=== PATIENT | female | born 1970 | race American Indian/Alaskan Native ===

== ENCOUNTER 2017-12-21 06:34 | Emergency (ER) | payer SELFPAY ==
[2017-12-21 07:44] LABS: Basophils % (Auto) 0.7 % (0.0-1.8); Eosinophils # (Auto) 0.4 K/mm3 (0.0-0.4); Eosinophils % (Auto) 7.3 % (0.0-4.3); Hemoglobin 11.1 gm/dl (10.1-14.3); Lymphocytes % (Auto) 33.9 % (13.4-35.0); Mean Corpuscular HGB Conc 31 % (30-34); Mean Corpuscular Volume 74 fl (79-97); Monocytes # (Auto) 0.4 K/mm3 (0.0-0.8); Monocytes % (Auto) 6.2 % (0.0-7.3); Platelet Count 199 K/mm3 (140-440); Red Cell Distribution Width 16.4 % (13.2-15.2)
[2017-12-21 07:51] LABS: Mean Corpuscular Hemoglobin 23 pg (28-32)
[2017-12-21] MEDS ORDERED: NORCO 5/325 PO ONE (07:54)
[2017-12-21] MEDS ORDERED: TORADOL IM ONE (07:54)
--- NOTE | 2017-12-21 08:00 | Emergency Department Report ---
HPI - General Chief Complaint: Back Pain/Injury Time Seen by Provider: 12/21/17 07:44 - HPI HPI: Room 26 The patient is a 47-year-old female presenting with a chief complaint left flank pain and left thigh pain. The patient states 2 days ago she slipped with a total 400 back when she awakened she had pain in the left back and left thigh. Patient also states she's had dysuria for one week. Patient denies hematuria, nausea/vomiting or fever. Location: [See above] Duration: 2 days Quality: Pain Severity: [See above] Modifying factors: [see above] Context: [see above] Mode of transportation: [not driving] ED Past Medical Hx - Past Medical History Previous Medical History?: Yes Hx Hypertension: Yes Hx Diabetes: Yes - Surgical History Past Surgical History?: Yes Additional Surgical History: Bilateral tubal ligation - Family History Family history: no significant - Social History Smoking Status: Never Smoker Substance Use Type: None - Medications Home Medications: Home Medications Medication Instructions Recorded Confirmed Last Taken Type Cyclobenzaprine [Flexeril] 10 mg PO TID PRN #14 tablet 12/21/17 Unknown Rx HYDROcodone/APAP 5-325 [[place] 1 - 2 each PO Q6HR PRN #14 tablet 12/21/17 Unknown Rx 5/325] Ibuprofen [Motrin 800 MG tab] 800 mg PO Q8HR PRN #20 tablet 12/21/17 Unknown Rx Levofloxacin [Levaquin TAB] 500 mg PO QDAY #7 tablet 12/21/17 Unknown Rx ED Review of Systems ROS: Stated complaint: BACK PAIN Other details as noted in HPI Constitutional: denies: fever Eyes: denies: eye pain ENT: denies: throat pain Cardiovascular: denies: chest pain Gastrointestinal: denies: abdominal pain, nausea, vomiting Genitourinary: dysuria. denies: hematuria Musculoskeletal: back pain Neurological: denies: headache Physical Exam - Physical Exam Vital Signs: Vital Signs 12/21/17 06:34 Temperature 98.4 F Pulse Rate 88 Respiratory 18 Rate Blood Pressure 129/82 O2 Sat by Pulse 99 Oximetry Physical Exam: GENERAL: The patient is well-developed well-nourished female lying on stretcher not appearing to be in acute distress. [] HEENT: Normocephalic. Atraumatic. Extraocular motions are intact. Patient has moist mucous membranes. NECK: Supple. No meningitic signs are noted. There is no adenopathy noted. CHEST/LUNGS: Clear to auscultation. There is no respiratory distress noted. HEART/CARDIOVASCULAR: Regular. There is no tachycardia. There is no gallop rub or murmur. ABDOMEN: Abdomen is soft, nontender. Patient has normal bowel sounds. There is no abdominal distention. SKIN: There is no rash. There is no edema. There is no diaphoresis. NEURO: The patient is awake, alert, and oriented. The patient is cooperative. The patient has normal speech MUSCULOSKELETAL: There is left CVA tenderness. There is no evidence of acute injury. ED Course Vital Signs 12/21/17 06:34 Temperature 98.4 F Pulse Rate 88 Respiratory 18 Rate Blood Pressure 129/82 O2 Sat by Pulse 99 Oximetry ED Medical Decision Making - Lab Data Result diagrams: 12/21/17 07:03 12/21/17 07:03 Laboratory Tests 12/21/17 12/21/17 12/21/17 06:47 07:03 07:03 WBC 5.8 RBC 4.90 Hgb 11.1 Hct 36.0 MCV 74 L MCH 23 L MCHC 31 RDW 16.4 H Plt Count 199 Lymph % (Auto) 33.9 Esmeralda % (Auto) 6.2 Eos % (Auto) 7.3 H Baso % (Auto) 0.7 Lymph # 2.0 Esmeralda # 0.4 Eos # 0.4 Baso # 0.0 Seg Neutrophils % 51.9 Seg Neutrophils # 3.0 Sodium 134 L Potassium 3.9 Chloride 97.1 L Carbon Dioxide 21 L Anion Gap 20 BUN 11 Creatinine 0.4 L Estimated GFR > 60 BUN/Creatinine Ratio 28 Glucose 344 H POC Glucose 341 H Calcium 9.0 Total Bilirubin 0.90 AST 25 ALT 36 Alkaline Phosphatase 47 Total Protein 7.4 Albumin 3.9 Albumin/Globulin Ratio 1.1 Urine Color Urine Turbidity Urine pH Ur Specific [place] Urine Protein Urine Glucose (UA) Urine Ketones Urine Blood Urine Nitrite Urine Bilirubin Urine Urobilinogen Ur Leukocyte Esterase Urine WBC (Auto) Urine RBC (Auto) U Epithel Cells (Auto) Urine Bacteria (Auto) Urine Mucus Urine Yeast (Budding) Urine HCG, Qual 12/21/17 12/21/17 08:00 Unknown WBC RBC Hgb Hct MCV MCH MCHC RDW Plt Count Lymph % (Auto) Esmeralda % (Auto) Eos % (Auto) Baso % (Auto) Lymph # Esmeralda # Eos # Baso # Seg Neutrophils % Seg Neutrophils # Sodium Potassium Chloride Carbon Dioxide Anion Gap BUN Creatinine Estimated GFR BUN/Creatinine Ratio Glucose POC Glucose Calcium Total Bilirubin AST ALT Alkaline Phosphatase Total Protein Albumin Albumin/Globulin Ratio Urine Color Yellow Urine Turbidity Clear Urine pH 5.0 Ur Specific [place] 1.040 H Urine Protein <15 mg/dl Urine Glucose (UA) >=500 Urine Ketones Tr Urine Blood Sm Urine Nitrite Neg Urine Bilirubin Neg Urine Urobilinogen < 2.0 Ur Leukocyte Esterase Lg Urine WBC (Auto) 31.0 H Urine RBC (Auto) 10.0 U Epithel Cells (Auto) 7.0 Urine Bacteria (Auto) 2+ Urine Mucus Few Urine Yeast (Budding) 1+ Urine HCG, Qual Negative - Radiology Data Radiology results: report reviewed (CT abdomen and pelvis-discussed with radiologist), image reviewed CT abdomen and pelvis (discussed with radiologist)-no stones or hydronephrosis seen. There is a fatty liver. There is a left renal cyst. There is a hiatal hernia. - Differential Diagnosis sciatica, lumbar radiculopathy, renal colic, pyelonephritis, UTI Critical care attestation.: If time is entered above; I have spent that time in minutes in the direct care of this critically ill patient, excluding procedure time. ED Disposition Clinical Impression: UTI (urinary tract infection), Left flank pain Disposition: DC- TO HOME OR SELFCARE Is pt being admited?: No Does the pt Need Aspirin: No Condition: Stable Instructions: Lumbar Radiculopathy (ED), Acute Pyelonephritis (ED), Flank Pain (ED), Urinary Tract Infection in Women (ED) Additional Instructions: Return to the emergency department immediately should you develop worsening symptoms, fever, inability to tolerate food or liquid or any other concerns. Prescriptions: Cyclobenzaprine [Flexeril] 10 mg PO TID PRN #14 tablet PRN Reason: Muscle Spasm HYDROcodone/APAP 5-325 [[place] 5/325] 1 - 2 each PO Q6HR PRN #14 tablet PRN Reason: Pain Ibuprofen [Motrin 800 MG tab] 800 mg PO Q8HR PRN #20 tablet PRN Reason: Pain Levofloxacin [Levaquin TAB] 500 mg PO QDAY #7 tablet Referrals: PRIMARY CARE, [Primary Care Provider] - 3-5 Days TRUONG CHOU MD [Staff Physician] - 3-5 Days (Dr. Chou is an orthopedic surgeon. Please follow up with him for further evaluation) Time of Disposition: 10:06
[2017-12-21 08:03] LABS: Alanine Aminotransferase 36 units/L (7-56); Albumin 3.9 g/dL (3.9-5); BUN/Creatinine Ratio 28; Blood Urea Nitrogen 11 mg/dL (7-17); Hemolysis Index 7
[2017-12-21 08:07] LABS: Bacteria,Urine 2+ /HPF (Negative); Bilirubin,Urine NEG (Negative); Blood,Urine SM (Negative); Color,Urine Yellow (Yellow); Mucus,Urine FEW /HPF; Protein,Urine <15 mg/dL mg/dL (Negative); Urobilinogen,Urine < 2.0 mg/dL (<2.0)
[2017-12-21 09:12] LABS: HCG Qualitative,Urine Negative (Negative)
[2017-12-21 10:50] VITALS: BP 124/88
--- NOTE | 2017-12-21 11:20 | Cat Scan Report ---
CT ABDOMEN AND PELVIS WITHOUT CONTRAST INDICATION: Left flank pain. COMPARISON: None similar at this institution. FINDINGS: Noncontrast abdomen and pelvis CT performed. LUNG BASES: Top normal heart size. Nonspecific distal esophageal wall prominence/thickening, not excluded for gastroesophageal reflux and/or hiatal hernia, amongst others. ABDOMEN: Please note that sensitivity to detect small visceral lesions is limited due to the absence of intravenous or oral contrast. Diffuse fatty hepatic infiltration with mild pericholecystic sparing noted. Right hepatic lobe 20.5 cm in midclavicular length. Otherwise grossly unremarkable unenhanced liver, spleen, gallbladder, pancreas, adrenals, aorta, IVC and kidneys. A 1.3 cm left interpolar renal cyst as on axial image 66, series 2. Another indeterminate 0.5 cm slightly exophytic density may project off the left lower renal cortex as on axial image 90, series 2. Few small, subcentimeter mesenteric and retroperitoneal lymph nodes. No ascites. Nonopacified GI tract evaluation limited, though grossly nonobstructive. Normal appendix. PELVIS: Uterus, adnexa/ovaries and rectosigmoid within normal limits. Few pelvic phleboliths. Grossly preserved urinary bladder contours with intrinsic fluid attenuation of 31 HU. No pelvic free fluid. Few small bilateral inguinal lymph nodes. Multilevel spinal degenerative changes, including lower thoracic predominantly right-sided osteophytes. Slight dextroscoliosis apex about L1-L2. Mild bilateral SI joint degenerative spurring. CONCLUSION: No radiopaque nephrolithiasis or obstruction with various incidental findings as a left interpolar renal cyst, fatty enlarged liver, distal esophageal prominence/thickening and multilevel spinal degenerative changes, amongst others, as above. Thank you for the opportunity to participate in this patient's care.
== END 2017-12-21 10:49 | disposition home or self-care (01) ==
LOC: ED 06:34
DX: N39.0 Urinary tract infection, site not specified (principal); I10 Essential (primary) hypertension; E11.9 Type 2 diabetes mellitus without complications; Z98.51 Tubal ligation status
CPT/HCPCS: 36415; 74176; 80053; 81001; 81025; 82962; 85025; 96372; 99284; J1885

== ENCOUNTER 2018-08-09 10:16 | Emergency (ER) | payer SELFPAY ==
--- NOTE | 2018-08-09 13:12 | Emergency Department Report ---
ED Female HPI - General Chief complaint: Urogenital-Female Stated complaint: POSS UTI/DIABETES/RASH ON THIGH Time Seen by Provider: 08/09/18 12:58 Source: patient Mode of arrival: Ambulatory Limitations: No Limitations - History of Present Illness Initial comments: Mrs. Young is a very pleasant 48-year-old female with history of "poorly controlled diabetes" and hypertension presents with vaginal irritation white vaginal discharge. She is concerned for yeast infection and bacterial superinfection. She has not been on her home medications for the past 2 months. Recently lost insurance. Unable to see her PCP until next month. No fever. No chest pain. No abdominal pain. No nausea or vomiting. MD Complaint: vaginal discharge -: Gradual, week(s) (3) Location: labia, perineum Severity: mild Quality: burning Consistency: constant Worsens with: bathing - Related Data Previous Rx's Medication Instructions Recorded Last Taken Type Cyclobenzaprine [Flexeril] 10 mg PO TID PRN #14 tablet 12/21/17 Unknown Rx Fluconazole [Diflucan] 150 mg PO QDAY #1 tablet 12/21/17 Unknown Rx HYDROcodone/APAP 5-325 [[place] 1 - 2 each PO Q6HR PRN #14 tablet 12/21/17 Unknown Rx 5/325] Ibuprofen [Motrin 800 MG tab] 800 mg PO Q8HR PRN #20 tablet 12/21/17 Unknown Rx levoFLOXacin [Levaquin TAB] 500 mg PO QDAY #7 tablet 12/21/17 Unknown Rx Fluconazole [Diflucan] 150 mg PO Q72H 3 Days #3 tablet 08/09/18 Unknown Rx Lisinopril [Zestril] 40 mg PO DAILY 30 Days #30 tablet 08/09/18 Unknown Rx Miconazole/Cleanser 17 On Wipe 1 each VG QHS 7 Days #1 kit 08/09/18 Unknown Rx [Monistat 7 Combination Pack] Sulfamethoxazole/Trimethoprim 1 each PO BID 7 Days #14 tablet 08/09/18 Unknown Rx [Bactrim DS TAB] metFORMIN [Glucophage] 500 mg PO BID 30 Days #60 tablet 08/09/18 Unknown Rx Allergies Allergy/AdvReac Type Severity Reaction Status Date / Time No Known Allergies Allergy Verified 08/09/18 10:33 ED Review of Systems ROS: Stated complaint: POSS UTI/DIABETES/RASH ON THIGH Other details as noted in HPI Comment: All other systems reviewed and negative Constitutional: denies: fever, malaise Respiratory: denies: cough Cardiovascular: denies: chest pain ED Past Medical Hx - Past Medical History Previous Medical History?: Yes Hx Hypertension: Yes Hx Diabetes: Yes - Surgical History Past Surgical History?: Yes Additional Surgical History: Bilateral tubal ligation - Social History Smoking Status: Never Smoker Substance Use Type: None - Medications Home Medications: Home Medications Medication Instructions Recorded Confirmed Last Taken Type Cyclobenzaprine [Flexeril] 10 mg PO TID PRN #14 tablet 12/21/17 Unknown Rx Fluconazole [Diflucan] 150 mg PO QDAY #1 tablet 12/21/17 Unknown Rx HYDROcodone/APAP 5-325 [[place] 1 - 2 each PO Q6HR PRN #14 tablet 12/21/17 Unknown Rx 5/325] Ibuprofen [Motrin 800 MG tab] 800 mg PO Q8HR PRN #20 tablet 12/21/17 Unknown Rx levoFLOXacin [Levaquin TAB] 500 mg PO QDAY #7 tablet 12/21/17 Unknown Rx Fluconazole [Diflucan] 150 mg PO Q72H 3 Days #3 tablet 08/09/18 Unknown Rx Lisinopril [Zestril] 40 mg PO DAILY 30 Days #30 tablet 08/09/18 Unknown Rx Miconazole/Cleanser 17 On Wipe 1 each VG QHS 7 Days #1 kit 08/09/18 Unknown Rx [Monistat 7 Combination Pack] Sulfamethoxazole/Trimethoprim 1 each PO BID 7 Days #14 tablet 08/09/18 Unknown Rx [Bactrim DS TAB] metFORMIN [Glucophage] 500 mg PO BID 30 Days #60 tablet 08/09/18 Unknown Rx ED Physical Exam - General Limitations: No Limitations General appearance: alert, in no apparent distress - Head Head exam: Present: atraumatic, normocephalic - Eye Eye exam: Present: normal appearance - ENT ENT exam: Present: mucous membranes moist - Neck Neck exam: Present: normal inspection - Respiratory Respiratory exam: Present: normal lung sounds bilaterally. Absent: respiratory distress, wheezes, rales, rhonchi - Cardiovascular Cardiovascular Exam: Present: regular rate, normal rhythm, normal heart sounds. Absent: systolic murmur, diastolic murmur, rubs, gallop - GI/Abdominal GI/Abdominal exam: Present: soft. Absent: distended, tenderness, guarding, rebound - External exam: Present: other (declined by patient, she showed images of the affected thigh regions) - Extremities Exam Extremities exam: Present: normal inspection - Back Exam Back exam: Present: normal inspection - Neurological Exam Neurological exam: Present: alert, oriented X3 - Psychiatric Psychiatric exam: Present: normal affect, normal mood - Skin Skin exam: Present: warm, dry, intact, normal color. Absent: rash ED Course Vital Signs 08/09/18 10:20 Temperature 98 F Pulse Rate 97 H Respiratory 18 Rate Blood Pressure 185/100 O2 Sat by Pulse 97 Oximetry ED Medical Decision Making - Medical Decision Making Images shown to me by the patient showed patchy white hypopigmented skin in between her thighs, I suspect candidal infection. Prescribed fluconazole, Bactrim and Monistat to address vaginal thigh irritation. Also prescribed lisinopril and metformin. Critical care attestation.: If time is entered above; I have spent that time in minutes in the direct care of this critically ill patient, excluding procedure time. ED Disposition Clinical Impression: History of diabetes mellitus, Hypertensive urgency, Vaginitis Disposition: DC-01 TO HOME OR SELFCARE Is pt being admited?: No Does the pt Need Aspirin: No Condition: Stable Instructions: Chronic Hypertension (ED), Vulvovaginal Candidiasis (ED) Prescriptions: Miconazole/Cleanser 17 On Wipe [Monistat 7 Combination Pack] 1 each VG QHS 7 Days #1 kit Fluconazole [Diflucan] 150 mg PO Q72H 3 Days #3 tablet Lisinopril [Zestril] 40 mg PO DAILY 30 Days #30 tablet metFORMIN [Glucophage] 500 mg PO BID 30 Days #60 tablet Sulfamethoxazole/Trimethoprim [Bactrim DS TAB] 1 each PO BID 7 Days #14 tablet Referrals: [facility] [Outside] - [facility]
[2018-08-09 14:04] VITALS: BP 135/85
== END 2018-08-09 14:05 | disposition home or self-care (01) ==
LOC: ED 10:16
DX: N76.0 Acute vaginitis (principal); I16.0 Hypertensive urgency; I10 Essential (primary) hypertension; E11.9 Type 2 diabetes mellitus without complications; Z98.51 Tubal ligation status; Z79.84 Long term (current) use of oral hypoglycemic drugs
CPT/HCPCS: 99282

== ENCOUNTER 2018-11-02 12:45 | Emergency (ER) | payer OTHER ==
[2018-11-02] MEDS ORDERED: NORCO 5/325 PO ONE (12:53)
--- NOTE | 2018-11-02 12:53 | Emergency Department Report ---
Chief Complaint: Dental/Oral Stated Complaint: LFT SIDE TOOTH PAIN Time Seen by Provider: 11/02/18 12:51 - HPI History of Present Illness: l maxillary dental disease was on amox and finished she saw dmd and he put her on amox she has follow up Thurs l face swelling no ludwigs no abscess abc intact no fever controlling secretions on pred recently rx norvasc and metformin bs has been high BS 437 IN TRIAGE THIRSTY, URINATING ALL THE TIME mse completed - Exam Vital Signs: Vital Signs 11/02/18 12:49 Temperature 98.6 F Pulse Rate 124 H Respiratory 18 Rate Blood Pressure 163/91 O2 Sat by Pulse 98 Oximetry MSE screening note: Focused history and physical exam performed. Due to findings the following was ordered: ED Disposition for MSE Condition: Stable
[2018-11-02] MEDS ORDERED: NACL 0.9% 1000 ML 1,000 ML IV ONE (12:55)
[2018-11-02 13:38] LABS: Bilirubin,Urine NEG (Negative); Blood,Urine NEG (Negative); Color,Urine Straw (Yellow); Mucus,Urine FEW /HPF; Protein,Urine <15 mg/dL mg/dL (Negative); Urobilinogen,Urine < 2.0 mg/dL (<2.0)
[2018-11-02 13:40] LABS: HCG Qualitative,Urine Negative (Negative)
[2018-11-02 14:06] LABS: Alanine Aminotransferase 66 units/L (7-56); Albumin 3.9 g/dL (3.9-5); BUN/Creatinine Ratio 10; Blood Urea Nitrogen 5 mg/dL (7-17); Calcium 9.1 mg/dL (8.4-10.2); Hemolysis Index 6
[2018-11-02] MEDS ORDERED: CLEOCIN 900 MG/50 mL 900 MG/50 ML BAG IV ONE (14:08)
[2018-11-02 14:20] LABS: Hematocrit 38.2 % (30.3-42.9); Hemoglobin 12.4 gm/dl (10.1-14.3); Mean Corpuscular HGB Conc 33 % (30-34); Mean Corpuscular Volume 78 fl (79-97); Platelet Count 133 K/mm3 (140-440); Red Blood Count 4.91 M/mm3 (3.65-5.03); Red Cell Distribution Width 19.5 % (13.2-15.2)
[2018-11-02] MEDS ORDERED: HumuLIN R IV ONE (14:56)
--- NOTE | 2018-11-02 14:59 | Emergency Department Report ---
HPI <CRISELDAANTOINETTEJOVANIBillie Brown - Last Filed: 11/02/18 21:25> - HPI HPI: 48-year-old demented female presents to the emergency department with complaint of left-sided dental/jaw pain. Patient has a known history of tooth infections. She recently saw her dentist and was told that she may need some of the teeth p ulled port on that they would not do it until the infection is cleared. She was placed on some amoxicillin which she says has not helped. She also presents with elevated blood sugar. She has a history of omw-xbtbufh-frosgyeky diabetes for which she takes metformin. However she ran out about one week ago and says that she does not always take it compliantly as it causes her to have an upset stomach and "not feeling well." She follows with [facility] for PCP. <JUAN MARTINEZ - Last Filed: 11/04/18 15:50> - General Chief Complaint: Dental/Oral Time Seen by Provider: 11/02/18 12:51 ED Past Medical Hx <SRIKANTHJOVANI' M - Last Filed: 11/02/18 21:25> - Past Medical History Previous Medical History?: Yes Hx Hypertension: Yes Hx Diabetes: Yes - Surgical History Past Surgical History?: Yes Additional Surgical History: Bilateral tubal ligation - Social History Smoking Status: Never Smoker <JUAN MARTINEZ - Last Filed: 11/04/18 15:50> - Medications Home Medications: Home Medications Medication Instructions Recorded Confirmed Last Taken Type Cyclobenzaprine [Flexeril] 10 mg PO TID PRN #14 tablet 12/21/17 Unknown Rx Fluconazole [Diflucan] 150 mg PO QDAY #1 tablet 12/21/17 Unknown Rx HYDROcodone/APAP 5-325 [[place] 1 - 2 each PO Q6HR PRN #14 tablet 12/21/17 Unknown Rx 5/325] Ibuprofen [Motrin 800 MG tab] 800 mg PO Q8HR PRN #20 tablet 12/21/17 Unknown Rx levoFLOXacin [Levaquin TAB] 500 mg PO QDAY #7 tablet 12/21/17 Unknown Rx Fluconazole [Diflucan] 150 mg PO Q72H 3 Days #3 tablet 08/09/18 Unknown Rx Lisinopril [Zestril] 40 mg PO DAILY 30 Days #30 tablet 01/11/19 Unknown Rx Miconazole/Cleanser 17 On Wipe 1 each VG QHS 7 Days #1 kit 08/09/18 Unknown Rx [Monistat 7 Combination Pack] Sulfamethoxazole/Trimethoprim 1 each PO BID 7 Days #14 tablet 08/09/18 Unknown Rx [Bactrim DS TAB] metFORMIN [Glucophage] 500 mg PO BID 30 Days #60 tablet 08/09/18 Unknown Rx HYDROcodone/APAP 5-325 [[place] 1 each PO Q6HR PRN #12 tablet 11/02/18 Unknown Rx 5/325] Sulfamethoxazole/Trimethoprim 1 each PO BID #14 tablet 11/02/18 Unknown Rx [Bactrim DS TAB] ED Review of Systems ROS: Stated complaint: LFT SIDE TOOTH PAIN Other details as noted in HPI <ABDIEL DUKE - Last Filed: 11/02/18 21:25> ROS: Stated complaint: LFT SIDE TOOTH PAIN Other details as noted in HPI Comment: All other systems reviewed and negative Constitutional: denies: chills, fever Eyes: denies: eye pain, vision change ENT: dental pain. denies: ear pain, throat pain Respiratory: denies: cough, shortness of breath Cardiovascular: denies: chest pain, palpitations Gastrointestinal: denies: vomiting, diarrhea Genitourinary: denies: dysuria, discharge Musculoskeletal: denies: back pain, arthralgia Skin: denies: rash, lesions Neurological: denies: headache, weakness <JUAN MARTINEZ - Last Filed: 11/04/18 15:50> Physical Exam - Physical Exam Vital Signs: Vital Signs 11/02/18 11/02/18 12:49 15:58 Temperature 98.6 F Pulse Rate 124 H Respiratory 18 20 Rate Blood Pressure 163/91 O2 Sat by Pulse 98 Oximetry <ABDIEL DUKE - Last Filed: 11/02/18 21:25> - Physical Exam Vital Signs: Vital Signs 11/02/18 12:49 Temperature 98.6 F Pulse Rate 124 H Respiratory 18 Rate Blood Pressure 163/91 O2 Sat by Pulse 98 Oximetry Physical Exam: GENERAL: The patient is well-developed well-nourished. HEENT: Normocephalic. Atraumatic. Patient has moist mucous membranes. Patient has multiple dental caries and some broken/fractured teeth. She has a dental abscess seen to the left upper jaw around the incisor. No drooling or trismus. EYES: Extraocular motions are intact. Pupils are equal and reactive to light bilaterally. NECK: Supple. Trachea is midline. CHEST/LUNGS: Clear to auscultation. There is no respiratory distress noted. HEART/CARDIOVASCULAR: Regular. There is no tachycardia. There is no obvious murmur. ABDOMEN: Abdomen is soft, nontender. Patient has normal bowel sounds. Obese habitus. SKIN: There is some mild left-sided cheek and facial swelling. NEURO: The patient is awake, alert, and oriented. The patient is cooperative. The patient has no focal neurologic deficits. The patient has normal speech. MUSCULOSKELETAL: There is no tenderness or deformity. There is no evidence of acute injury. <JUAN MARTINEZ - Last Filed: 11/04/18 15:50> ED Course Vital Signs 11/02/18 11/02/18 12:49 15:58 Temperature 98.6 F Pulse Rate 124 H Respiratory 18 20 Rate Blood Pressure 163/91 O2 Sat by Pulse 98 Oximetry <ABDIEL DUKE - Last Filed: 11/02/18 21:25> Vital Signs 11/02/18 12:49 Temperature 98.6 F Pulse Rate 124 H Respiratory 18 Rate Blood Pressure 163/91 O2 Sat by Pulse 98 Oximetry <JUAN MARTINEZ - Last Filed: 11/04/18 15:50> ED Medical Decision Making - Lab Data Result diagrams: 11/02/18 13:31 11/02/18 13:31 - Radiology Data Radiology results: report reviewed Ordering Physician: JUAN MARTINEZ DO Date of Service: 11/02/18 Procedure(s): CT facial bones w con Accession Number(s): [id number] cc: JUAN MARTINEZ DO PROCEDURE: CT FACIAL BONES W CON TECHNIQUE: CT facial bones with contrast HISTORY: Dental abscess with left sided facial swelling COMPARISONS: FINDINGS: Demonstrated is periapical lucency at the base of the left upper lateral incisor. There is adjacent soft tissue thickening with a hypodense rim enhancing focus consistent with periodontal abscess. This measures approximately 1.2 cm Dental caries present. No additional acute bony abnormality identified. No additional focal soft tissue abnormality seen. IMPRESSION: Findings consistent with periapical abscess base of the left upper lateral incisor with adjacent periodontal abscess. This document is electronically signed by David Valdez MD., November 02 2018 08:59:40 PM ET Transcribed By: DANIELLE Dictated By: TIN VALDEZ MD Electronically Authenticated By: TIN VALDEZ MD Signed Date/Time: 11/02/182100 DD/ 47 TD/TT: 11/02/181947 <ABDIEL DUKE - Last Filed: 11/02/18 21:25> - Lab Data Result diagrams: 11/02/18 13:31 11/02/18 13:31 - Medical Decision Making Patient presents with some left-sided facial swelling and pain around the teeth/jaw on the left upper side. There is a visible abscess around the left upper incisor. I discussed incision and drainage with the patient but she declined/refused. She was started on clindamycin. A CT shows a periapical and periodontal abscess. Labs are mostly unremarkable. The patient also has hyperglycemia with a blood sugar of about 450. She has metformin at home but has not been taking it for the past week as she does not like how it makes her feel. She was given the IV fluid and IV insulin and her blood sugar came down t o about 200. She understands the importance of restarting her diabetes medications. She will be placed on Bactrim antibiotics and already has an appointment with her dentist. There is been no drooling or trismus or signs of any difficulty with swallowing or respiratory distress. She will return to the ER with any worsening of her symptoms or any acute distress. I reevaluated the patient just before leaving my shift and the patient was saying that she was feeling greatly improved. She did not appear to have any significant change in her heart rate. She was awake and alert and did not have any signs of distress. I would have discharged her at that time but I was still awaiting the results for the CT scan of the facial bones with contrast. I signed this out to the mid-level working on the fast track side to follow the CT scan results and provide appropriate disposition. While it does sound like the patient still felt improved and was stable upon discharge, I am aware that her discharge vital signs show a fever and a return or worsening of her tachycardia. I have made multiple times throughout today to try and call and speak with her to find out how she is feeling and he left a voicemail but there has been no callback. <JUAN MARTINEZ - Last Filed: 11/04/18 15:50> Critical care attestation.: If time is entered above; I have spent that time in minutes in the direct care of this critically ill patient, excluding procedure time. <ABDIEL DUKE - Last Filed: 11/02/18 21:25> Critical Care Time: No Critical care attestation.: If time is entered above; I have spent that time in minutes in the direct care of this critically ill patient, excluding procedure time. <JUAN MARTINEZ S - Last Filed: 11/04/18 15:50> ED Disposition Is pt being admited?: No Does the pt Need Aspirin: No <ABDIEL DUKE - Last Filed: 11/02/18 21:25> Is pt being admited?: No <JUAN MARTINEZ S - Last Filed: 11/04/18 15:50> Clinical Impression: Dental infection, Tooth abscess, Hyperglycemia, Hypertension Disposition: TO HOME OR SELFCARE Condition: Stable Instructions: Dental Abscess (ED), Hypertension (ED), Toothache (ED), Diabetic Hyperglycemia (ED) Additional Instructions: Please follow up with a primary care physician and a dentist. Take the antibiotics as prescribed. Return to the emergency Department with any worsening of your symptoms or any acute distress. Restart taking your metformin. Try and stay away from foods that are high in sugar, carbohydrates and starches. Keep a blood sugar log. You have been prescribed a medication that can be sedating. Therefore, this medication cannot be taken prior to driving, working, being responsible for children, and cannot be mixed with alcohol of any quantity. Prescriptions: Sulfamethoxazole/Trimethoprim [Bactrim DS TAB] 1 each PO BID #14 tablet HYDROcodone/APAP 5-325 [[place] 5/325] 1 each PO Q6HR PRN #12 tablet PRN Reason: Pain Referrals: Primary Care Physician and Dentist, Your [Other] - [facility] [Outside] - 3-5 Days [facility] [Outside] - 3-5 Days Forms: Work/School Release Form(ED)
[2018-11-02] MEDS ORDERED: MORPHINE IV ONE (15:43)
[2018-11-02] MEDS ORDERED: MORPHINE ONE (15:46)
--- NOTE | 2018-11-02 21:01 | Cat Scan Report ---
PROCEDURE: CT FACIAL BONES W CON TECHNIQUE: CT facial bones with contrast HISTORY: Dental abscess with left sided facial swelling COMPARISONS: FINDINGS: Demonstrated is periapical lucency at the base of the left upper lateral incisor. There is adjacent s oft tissue thickening with a hypodense rim enhancing focus consistent with periodontal abscess. This measures approximately 1.2 cm Dental caries present. No additional acute bony abnormality identified. No additional focal soft tissue abnormality seen. IMPRESSION: Findings consistent with periapical abscess base of the left upper lateral incisor with adjacent jennifer odontal abscess. This document is electronically signed by David Reinoso MD., November 02 2018 08:59:40 PM ET
[2018-11-02 21:41] VITALS: BP 146/74
[2018-11-02] MEDS ORDERED: IBUPROFEN ONE (21:48)
[2018-11-02] MEDS ORDERED: IBUPROFEN PO ONE (21:53)
== END 2018-11-02 21:55 | disposition home or self-care (01) ==
LOC: ED 12:45
DX: K04.7 Periapical abscess without sinus (principal); E11.65 Type 2 diabetes mellitus with hyperglycemia; I10 Essential (primary) hypertension; Z98.51 Tubal ligation status; Z98.890 Other specified postprocedural states; Z79.84 Long term (current) use of oral hypoglycemic drugs
CPT/HCPCS: 36415; 70487; 80053; 81001; 81025; 82010; 82805; 82962; 85027; 96361; 96365; 96375; 99284; J2270; J7030; Q9967; J1815